=== PATIENT | male | born 1950 | race Caucasian/White ===

== ENCOUNTER 2021-07-05 05:31 | Day surgery (SDC) | payer MEDICARE, BC ==
[2021-06-28 14:59] LABS: BASOPHILS # (AUTO) 0.1 X10'3 (0-0.2); BASOPHILS % (AUTO) 0.7 % (0-1); EOSINOPHILS # (AUTO) 0.2 X10'3 (0-0.9); EOSINOPHILS % (AUTO) 2.3 % (0-6); LYMPHOCYTES # (AUTO) 2.5 X10'3 (1.1-4.8); MEAN CORPUSCULAR HEMOGLOBIN 30.7 PG (27.0-31.0); MEAN CORPUSCULAR HGB CONC 34.4 g/dL (33.0-36.5); MEAN CORPUSCULAR VOLUME 89.2 FL (78-98); MEAN PLATELET VOLUME 8.4 FL (7.4-10.4); MONOCYTES # (AUTO) 0.8 X10'3 (0-0.9); MONOCYTES % (AUTO) 10.3 % (2-12); NEUTROPHILS # (AUTO) 4.7 X10'3 (1.8-7.7); NEUTROPHILS % (AUTO) 56.7 % (42-75); PRE OP HEMATOCRIT 45.2 % (42.0-52.0); PRE OP HEMOGLOBIN 15.5 g/dL (14.0-17.9); PRE OP PLATELET COUNT 163 X10'3 (140-440); RED BLOOD COUNT 5.07 X10'6 (4.70-6.10); RED CELL DISTRIBUTION WIDTH 15.5 % (11.5-14.5)
[2021-06-28 15:06] LABS: ALBUMIN 3.9 G/DL (3.4-5.0); ALBUMIN/GLOBULIN RATIO 1.1 (1.1-1.5); ALKALINE PHOSPHATASE 98 IU/L (46-116); BLOOD UREA NITROGEN 15 MG/DL (7-18); BUN/CREATININE RATIO 18.3 (5.4-32.0); CALCIUM 9.1 MG/DL (8.5-10.1); CHLORIDE 109 MMOL/L (99-107); CREATININE 0.82 MG/DL (0.60-1.10); PRE OP ALT 78 U/L (30-65); PRE OP ANION GAP 7 (8-16); PRE OP AST 58 U/L (10-37); PRE OP GLUCOSE 83 MG/DL (70-104); PRE OP POTASSIUM 3.6 MMOL/L (3.4-5.1); PRE OP SODIUM 144 MMOL/L (135-145); TOTAL CARBON DIOXIDE 27.8 MMOL/L (24-32); TOTAL PROTEIN 7.4 G/DL (6.4-8.2); eGFR > 90 ML/MIN
[~2021-07-05] VITALS: Ht 185.4 cm; Wt 93.8 kg
[~2021-07-05 05:31] MED LIST: CARV-50 PO; DOCUMENT DATE & TIME OF BETA-BLOCKER PO ONE; DULA0.75 SQ; INSU100C10 SQ; LANTUS SQ; LISI-222 PO; OMEG1CAP46 PO; PRED2.5T4 PO; PREG50CA PO; ROSU10TA2 PO; SYN0.1T PO; cefazolin/dext.iso 2gm/100ml IV ONE; famotidine 20mg tablet PO ONE; ringers solution, lacted 1,000 ML IV SCH
[2021-07-05 05:35] VITALS: BP 184/99
[2021-07-05] MEDS ORDERED: BUPIVAcaine/PF 2.5mg/ml (0.25%) 10ml vial ONE (06:43)
[2021-07-05] MEDS ORDERED: labetalol 20mg/4ml (5mg/ml) syringe IV ONE (07:32)
[2021-07-05] MEDS ORDERED: midazolam 1 mg/ML 2ml injection ONE (07:40)
[2021-07-05] MEDS ORDERED: fentaNYL/PF 50MCG/1 ML 2ML syringe ONE (07:40)
[2021-07-05] MEDS ORDERED: ketorolac trometh. 30mg/ml inj. ONE (07:43)
[2021-07-05] MEDS ORDERED: LIDOcaine 1% 30ml preserv. free vial ONE (07:44)
[2021-07-05 08:06] VITALS: BP 152/112
--- NOTE | 2021-07-05 08:06 | NUR ---
Received from OR via [facility] IN STABLE CONDITION , accompanied by Anesthesiologist and CHIEF SCIENTIFIC OFFICER report given by CHIEF SCIENTIFIC OFFICER AND Anesthesiolgist. Addendum: 07/05/21 at 0854 by Rody Castañeda RN Amended: Links added.
[2021-07-05 08:10] VITALS: BP 156/98
[2021-07-05 08:20] VITALS: BP 161/99
[2021-07-05 08:30] VITALS: BP 158/87
--- NOTE | 2021-07-05 08:46 | NUR ---
PATIENT DISCHARGED HOME FROM PACU IN STABLE CONDITION AFTER WRITTEN AND VERBAL DISCHARGE INSTRUCTIONS GIVEN. PATIENT GAVE VERBAL UNDERSTANDING OF INSTRUCTIONS GIVEN. PATIENT LEFT FACILITY VIA WHEELCHAIR WITH VOLUNTEER. Addendum: 07/05/21 at 0907 by Rody Castañeda RN Amended: Links added.
== END 2021-07-05 08:46 | disposition home or self-care (01) ==
LOC: PAS 05:31
PROVIDERS: ATTEND Orthopaedic Surgery Hand Surgery
DX: G56.02 Carpal tunnel syndrome, left upper limb (principal); E11.9 Type 2 diabetes mellitus without complications; E78.00 Pure hypercholesterolemia, unspecified; E03.9 Hypothyroidism, unspecified; I10 Essential (primary) hypertension; I25.2 Old myocardial infarction; Z20.822 Contact with and (suspected) exposure to COVID-19; Z79.899 Other long term (current) drug therapy; Z79.4 Long term (current) use of insulin; Z79.82 Long term (current) use of aspirin; Z72.89 Other problems related to lifestyle; Z87.442 Personal history of urinary calculi; Z89.421 Acquired absence of other right toe(s); Z87.891 Personal history of nicotine dependence; Z95.5 Presence of coronary angioplasty implant and graft
CPT/HCPCS: 36415; 64721; 71046; 80053; 82948; 85025; 93005; J1885; J2001; J2250; J3010; J3490; U0003; U0005; Z7506; Z7512; A4215; J7120

== ENCOUNTER 2021-08-02 05:39 | Day surgery (SDC) | payer MEDICARE, BC ==
[2021-07-26 14:41] LABS: BASOPHILS # (AUTO) 0.1 X10'3 (0-0.2); BASOPHILS % (AUTO) 0.9 % (0-1); EOSINOPHILS # (AUTO) 0.2 X10'3 (0-0.9); EOSINOPHILS % (AUTO) 3.1 % (0-6); LYMPHOCYTES # (AUTO) 2.5 X10'3 (1.1-4.8); LYMPHOCYTES % (AUTO) 31.9 % (21-51); MEAN CORPUSCULAR HEMOGLOBIN 30.5 PG (27.0-31.0); MEAN CORPUSCULAR HGB CONC 33.8 g/dL (33.0-36.5); MEAN CORPUSCULAR VOLUME 90.2 FL (78-98); MEAN PLATELET VOLUME 8.4 FL (7.4-10.4); MONOCYTES # (AUTO) 0.9 X10'3 (0-0.9); MONOCYTES % (AUTO) 11.5 % (2-12); NEUTROPHILS # (AUTO) 4.1 X10'3 (1.8-7.7); NEUTROPHILS % (AUTO) 52.6 % (42-75); PRE OP HEMOGLOBIN 15.5 g/dL (14.0-17.9); PRE OP PLATELET COUNT 162 X10'3 (140-440); RED CELL DISTRIBUTION WIDTH 15.1 % (11.5-14.5)
[2021-07-26 14:50] LABS: ALBUMIN 3.8 G/DL (3.4-5.0); ALKALINE PHOSPHATASE 93 IU/L (46-116); BLOOD UREA NITROGEN 16 MG/DL (7-18); BUN/CREATININE RATIO 19.8 (5.4-32.0); CALCIUM 9.3 MG/DL (8.5-10.1); CHLORIDE 107 MMOL/L (99-107); CREATININE 0.81 MG/DL (0.60-1.10); PRE OP ALT 54 U/L (30-65); PRE OP ANION GAP 10 (8-16); PRE OP AST 39 U/L (10-37); PRE OP GLUCOSE 136 MG/DL (70-104); PRE OP POTASSIUM 4.2 MMOL/L (3.4-5.1); PRE OP SODIUM 147 MMOL/L (135-145); TOTAL CARBON DIOXIDE 30.2 MMOL/L (24-32); TOTAL PROTEIN 7.5 G/DL (6.4-8.2); eGFR > 90 ML/MIN
[~2021-08-02] VITALS: Ht 185.4 cm; Wt 93.9 kg
[~2021-08-02 05:39] MED LIST changes: -DOCUMENT DATE & TIME OF BETA-BLOCKER PO ONE; -PRED2.5T4 PO; -PREG50CA PO; -cefazolin/dext.iso 2gm/100ml IV ONE; +cefazolin/dext.iso 2gm/50ml 50 ML IV ONE
[2021-08-02 06:42] VITALS: BP 155/86
[2021-08-02 06:48] VITALS: BP 155/86
[2021-08-02] MEDS ORDERED: BUPIVAcaine/PF 2.5 mg/ml (0.25%) 30ml vial ONE (06:51)
[2021-08-02] MEDS ORDERED: LIDOcaine 1% 30ml preserv. free vial ONE (07:22)
[2021-08-02] MEDS ORDERED: fentaNYL/PF 50MCG/1 ML 2ML syringe ONE (07:23)
[2021-08-02] MEDS ORDERED: midazolam 1 mg/ML 2ml injection ONE (07:23)
[2021-08-02] MEDS ORDERED: ketorolac trometh. 30mg/ml inj. ONE (07:24)
[2021-08-02] MEDS ORDERED: 0.9 % SODIUM CHLORIDE 10 ML VIAL ONE (07:25)
[2021-08-02 08:03] VITALS: BP 150/95
--- NOTE | 2021-08-02 08:03 | NUR ---
Received from OR via [facility] , accompanied by Anesthesiologist EDGARD and report given by Anesthesiolgist. PATIENT WITH 20G PIV IN LET UE RUNNING LR AT 100. DENIES PAIN. PATIENT WITH VSS. DRESSING IS CDI TO RIGHT Addendum: 08/02/21 at 0812 by Latrell Nicholson RN, RN Amended: Links added.
[2021-08-02 08:13] VITALS: BP 160/84
[2021-08-02 08:23] VITALS: BP 145/78
--- NOTE | 2021-08-02 08:33 | NUR ---
ALL DC CRITERIA HAS BEEN MET. IV OUT WITHOUT COMPLICATIONS. VSS. DENIES PAIN. ALL INSTRUCTIONS COVERED AND QUESTIONS ANSWERED. OUT VIA WHEELCHAIR T PERSONAL VEHICLE WHERE FAMILY DROVE PATIENT HOME. Addendum: 08/02/21 at 0857 by Latrell Nicholson RN, RN Amended: Links added.
== END 2021-08-02 08:33 | disposition home or self-care (01) ==
LOC: PAS 05:39
PROVIDERS: ATTEND Orthopaedic Surgery Hand Surgery
DX: G56.01 Carpal tunnel syndrome, right upper limb (principal); M65.341 Trigger finger, right ring finger; M72.0 Palmar fascial fibromatosis [Dupuytren]; E11.9 Type 2 diabetes mellitus without complications; E03.9 Hypothyroidism, unspecified; I10 Essential (primary) hypertension; I25.2 Old myocardial infarction; M86.8X7 Other osteomyelitis, ankle and foot; Z20.822 Contact with and (suspected) exposure to COVID-19; Z98.890 Other specified postprocedural states; Z95.5 Presence of coronary angioplasty implant and graft; Z87.891 Personal history of nicotine dependence; Z72.89 Other problems related to lifestyle; Z89.431 Acquired absence of right foot; Z79.899 Other long term (current) drug therapy; Z79.82 Long term (current) use of aspirin; Z79.4 Long term (current) use of insulin
CPT/HCPCS: 26055; 26121; 36415; 64721; 80053; 82948; 85025; J1885; J2001; J2250; J3010; J3490; U0003; U0005; Z7506; Z7512; A4215; J7120